=== PATIENT | male | born 1950 | race Caucasian/White ===

== ENCOUNTER → 2017-01-08 | Outpatient (CLI) | payer OTHER, MEDICARE ==
[~2017-01-08] MED LIST: ASPIRIN FOR CHI81 MG PO; ATORVASTATIN CA80 M1 PO; ISOSORBIDE DINI30 MG PO; ISOSORBIDE MONO30 MG PO; METOPROLOL TART50 M1 PO; NITROGLYCERIN0.4 MG SL; PROVENTIL0.09 MG/A1 INH; TAMSULOSIN HCL0.4 MG PO
== END | disposition home or self-care (01) ==
LOC: US 06:31
DX: Z13.6 Encounter for screening for cardiovascular disorders (principal); Z72.0 Tobacco use

== ENCOUNTER 2018-08-31 02:57 | Inpatient (IN) | payer OTHER, MEDICARE ==
[2018-08-31] VITALS (7 sets, daily range): BP systolic 109–134; BP diastolic 71–85
[~2018-08-31] VITALS: Ht 167.6 cm; Wt 74.9 kg
--- NOTE | ~2018-08-31 | EKG ---
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
--- NOTE | ~2018-08-31 | PR ---
[place], [place] PROGRESS NOTE NAME: LEILA HANDLEY UNIT #: [id number] ROOM: 505 DOCTOR: FRANDY SALGUERO MD BIRTHDATE: [birth year] DOS: 09/01/2018 SUBJECTIVE: The patient was seen in the Cardiology Department today 09/01/2018 prior to his stress test. He denies any problems overnight and has not had any further chest discomfort. Troponin levels have remained negative. PHYSICAL EXAMINATION: VITAL SIGNS: His pulse is 70 and regular, blood pressure was 122/76. He is afebrile. He weighs 74.9 kilograms with a body mass index of 26.7. NECK: Supple. CHEST: Clear to auscultation and percussion. HEART: Had a regular rhythm with an S4 gallop. ABDOMEN: Benign. EXTREMITIES: Showed no edema. IMPRESSION: 1. History of coronary artery disease, status post bypass surgery. 2. Chest pain consistent with unstable angina, but without any objective findings to suggest myocardial injury. 3. Chronic obstructive pulmonary disease. 4. History of Agent Randall exposure. 5. Hyperlipidemia. 6. Obstructive sleep apnea. PLAN: We will proceed with a pharmacologic stress test today. Further recommendations will depend upon the results of his stress test images. I thank the hospitalist physicians for asking our advice regarding his care. ADDENDUM I reviewed the nuclear images on the patient. They are normal, demonstrating normal myocardial perfusion and normal left ventricular systolic function. His risk of a myocardial event in the near future is very low and therefore ongoing medical therapy is appropriate. He may be discharged from a cardiac standpoint. He is followed by the [place] and we will remain available to see him as needed. [place], [place] PROGRESS NOTE NAME: LEILA HANDLEY UNIT #: [id number] ROOM: 505 DOCTOR: FRANDY SALGUERO MD BIRTHDATE: [birth year] FRANDY SALGUERO MD CM:PNTRANS [id number] FRANDY SALGUERO MD 09/02/182025 interface
--- NOTE | ~2018-08-31 | EKG ---
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
--- NOTE | ~2018-08-31 | EKG ---
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
[2018-08-31 03:12] LABS: BASO % 0.4 % (0.0-1.0); EOS # 0.2 10*3/uL (0.0-0.4); EOS % 4.9 % (1.0-4.0); HEMATOCRIT 40.4 % (42.0-52.0); HEMOGLOBIN 13.8 g/dl (14.0-18.0); LYMPH # 1.1 10*3/uL (1.3-4.4); LYMPH % 23.8 % (27.0-41.0); MEAN CELL VOLUME 91.6 fl (80.0-94.0); MEAN CORPUSCULAR HGB 31.3 pg (27.0-31.0); MEAN CORPUSCULAR HGB CONC 34.2 g/dl (33.0-37.0); MEAN PLATELET VOLUME 8.9 fl (9.6-12.3); MONO # 0.8 10*3/uL (0.1-1.0); MONO % 18.5 % (3.0-9.0); NEUT # 2.4 10*3/uL (2.3-7.9); NEUT % 52.4 % (47.0-73.0); PLATELET COUNT AUTOMATED 145 10*3/uL (130-400); RED BLOOD COUNT 4.41 10*6/uL (4.50-5.90); RED CELL DISTRI WIDTH 13.5 % (0-14.5); WHITE BLOOD COUNT 4.5 10*3/uL (4.8-10.8)
[2018-08-31 03:28] LABS: ALBUMIN 3.7 gm/dl (3.1-4.5); ALKALINE PHOSPHATASE 65 U/L (45-117); BUN 17 mg/dl (7-24); CHLORIDE 106 mmol/L (98-107); CREATININE 1.05 mg/dL (0.70-1.30); POTASSIUM 3.9 mmol/L (3.5-5.1); SGOT/AST 25 IU/L (3-35); SGPT/ALT 34 U/L (12-78); SODIUM 139 mmol/L (136-145); TOTAL PROTEIN 7.1 gm/dL (6.4-8.2)
[2018-08-31 03:30] LABS: ACT PARTIAL THROMBO TIME 23.5 SECONDS (20.8-31.5); TROPONIN I < 0.015 ng/ml (<0.045)
--- NOTE | 2018-08-31 04:22 | NUR ---
PROVIDED PATIENT WITH PILLOW AND BLANKETS AT THIS TIME. EXPLAINED TO PATIENT THE BED SITUATION ON THE FLOORS AT THIS TIME. PATIENT VOICED UNDERSTANDING AT THIS TIME. RESPRIATIONS EASY, NON-LABORED ON ROOM AIR. NO DISTRESS NOTED. CALL LIGHT WITHIN REACH. RN WILL CONTINUE TO MONITOR.
--- NOTE | 2018-08-31 07:55 | NUR ---
A 67, admitted to 5E, under the services of CASEY Bustamante DO with a diagnosis of CHEST PAIN. Chief complaint is CHEST PAIN. Patient arrived via ambulatory from ER. Monitor applied. Initial assessment completed. Vital signs taken and recorded. CASEY BUSTAMANTE DO notified of admission to the unit. Orders received. See assessment for past medical history, medications and allergies. Patient and/or family oriented to unit. [facility] 5TH FLOOR visitation policy reviewed. Clothing/patient valuable form completed. KAUSHIK BRIONES
--- NOTE | 2018-08-31 08:43 | NUR ---
OFFICE STAFF WAS NOTIFIED OF DR. SALGUERO CONSULT. RESPONSE OF NOTIFICATION WAS OK THANK YOU. DOROTA HENRY
[2018-08-31] MEDS ORDERED: LOPRESSOR100 M1 PO (08:48)
--- NOTE | 2018-08-31 08:56 | NUR ---
NOTIFIED THE HOSPITALIST THAT MED REC IS UP TO DATE.
--- NOTE | 2018-08-31 20:00 | NUR ---
AAOX3 SITTING UP IN BED. SKIN WARM & DRY. PULSE OX 95% ON ROOM AIR. VOICES NO C/O AT THIS TIME. CALL LIGHT WITHIN REACH.
--- NOTE | 2018-08-31 22:00 | NUR ---
INFORMED PATIENT THAT HE WOULD BE NPO AFTER MIDNIGHT FOR STRESS TEST IN A.M.
[2018-09-01] VITALS: BP 122/76
--- NOTE | 2018-09-01 04:00 | NUR ---
RESTING IN BED WITH EYES CLOSED. CALL LIGHT WITHIN REACH.
[2018-09-01 06:40] LABS: BASO % 0.2 % (0.0-1.0); EOS # 0.3 10*3/uL (0.0-0.4); EOS % 6.4 % (1.0-4.0); HEMATOCRIT 43.8 % (42.0-52.0); HEMOGLOBIN 14.4 g/dl (14.0-18.0); LYMPH # 1.3 10*3/uL (1.3-4.4); LYMPH % 26.5 % (27.0-41.0); MEAN CELL VOLUME 92.8 fl (80.0-94.0); MEAN CORPUSCULAR HGB 30.5 pg (27.0-31.0); MEAN CORPUSCULAR HGB CONC 32.9 g/dl (33.0-37.0); MEAN PLATELET VOLUME 9.5 fl (9.6-12.3); MONO # 0.6 10*3/uL (0.1-1.0); MONO % 12.7 % (3.0-9.0); NEUT # 2.6 10*3/uL (2.3-7.9); PLATELET COUNT AUTOMATED 150 10*3/uL (130-400); RED BLOOD COUNT 4.72 10*6/uL (4.50-5.90); RED CELL DISTRI WIDTH 13.5 % (0-14.5); WHITE BLOOD COUNT 4.7 10*3/uL (4.8-10.8)
[2018-09-01 06:50] LABS: INTERNATIONAL NORM RATIO 0.9 (2.0-3.5)
[2018-09-01 07:12] LABS: ALBUMIN 3.5 gm/dl (3.1-4.5); ALKALINE PHOSPHATASE 71 U/L (45-117); BUN 18 mg/dl (7-24); CHLORIDE 105 mmol/L (98-107); CHOLESTEROL 135 mg/dL (<200); CREATININE 1.03 mg/dL (0.70-1.30); FREE T4 1.11 ng/dl (0.76-1.46); HDL CHOLESTEROL 34 mg/dl (40-60); PHOSPHOROUS 3.7 mg/dL (2.5-4.9); POTASSIUM 4.2 mmol/L (3.5-5.1); SGPT/ALT 35 U/L (12-78); SODIUM 138 mmol/L (136-145)
[2018-09-01 07:17] LABS: LDL CHOLESTEROL 86 mg/dL (9-159); SGOT/AST 29 IU/L (3-35); TOTAL PROTEIN 7.6 gm/dL (6.4-8.2); TRIGLYCERIDES 73 mg/dl (<150); VLDL CHOLESTEROL 15 mg/dL (6-40)
--- NOTE | 2018-09-01 09:44 | NUR ---
PT RETURNED TO FLOOR FROM OR. PT STABLE AT THIS TIME.
--- NOTE | 2018-09-01 10:15 | NUR ---
INFORMED CONSENT OBTAINED FOR LEXISCAN NUCLEAR STRESS TEST WITH DR. SALGUERO. RESTING EKG NSR WITH RARE PVC. RESTING HR OF 87 WITH BP OF 104/80. LUNGS CLEAR WITH SPO2 OF 94% ON ROOM AIR. PT COMPLETED A 1:00 LEXISCAN PROTOCOL RECEIVING LEXISCAN 0.4 MG IV OVER 10 SECONDS. HAD NO CHEST PAIN OR ANY EKG CHANGES. HAD C/O OF FEELING "BREATHLESS" THAT WAS RELIEVED IN RECOVERY. HAD A PEAK BP OF 109 WITH BP OF 112/68. LAST RECOVERY HR OF 103 WITH BP OF 108/72. AWAITING SCANNING IN STABLE CONDITION.
--- NOTE | 2018-09-01 11:50 | NUR ---
Front End Technician in to talk to patient. Patient states lives at HOME with . There are BASEMENT steps in the home. Physician: SYLVIE WALLACE [place]: [place] Home health services: NONE Patient's level of ADLs: INDEPENDENT Patient has working utilities: YES DME: CPAP Follow-up physician's appointment after d/c: WILL BE MADE BY HOSPITALIST NURSE DIRECTOR ON DISCHARGE Does patient want to access PORTAL?: NO Discharge plan PT LIVES AT HOME WITH HIS AND IS INDEPENDENT IN CARE. STATES HE HAS NO NEEDS AT HOME ON DISCHARGE. CAN DISCHARGED TO HOME WHEN MEDICALLY STABLE.. FELICE CROOKS
[2018-09-01 12:00] VITALS: BP 103/84
[2018-09-01 16:00] VITALS: BP 106/77
--- NOTE | 2018-09-01 17:41 | NUR ---
Discharge instructions reviewed with patient/family. Patient receptive and verbalizes understanding. Follow-up care arranged. Written instructions given to patient/family.TELEMETRY ACCOUNTED FOR AND HEPLOCK REMOVED. EDUCATION PROVIDED FOR F/U. TEZ LOPEZ
== END 2018-09-01 17:41 | disposition home or self-care (01) | DRG 392 ==
LOC: ED 02:57 → 5E 04:02 → EDHOLD 04:02 → 5E 04:02
PROVIDERS: Family Medicine; ADMIT Internal Medicine
PROC: 3E073KZ Introduction of Other Diagnostic Substance into Coronary Artery, Percutaneous Approach (ICD-10-PCS; principal; 2018-09-01)
PROC: 4A02XM4 Measurement of Cardiac Total Activity, External Approach (ICD-10-PCS; principal; 2018-09-01)
DX: K21.9 Gastro-esophageal reflux disease without esophagitis (principal); I25.110 Atherosclerotic heart disease of native coronary artery with unstable angina pectoris; F41.9 Anxiety disorder, unspecified; J44.9 Chronic obstructive pulmonary disease, unspecified; G47.33 Obstructive sleep apnea (adult) (pediatric); D64.9 Anemia, unspecified; E78.5 Hyperlipidemia, unspecified; N40.0 Benign prostatic hyperplasia without lower urinary tract symptoms; G47.30 Sleep apnea, unspecified; D72.819 Decreased white blood cell count, unspecified; Z95.1 Presence of aortocoronary bypass graft; Z87.891 Personal history of nicotine dependence; Z79.51 Long term (current) use of inhaled steroids; Z79.82 Long term (current) use of aspirin; Z79.899 Other long term (current) drug therapy

== ENCOUNTER → 2020-07-31 | Outpatient (CLI) | payer OTHER ==
[~2020-07-31] MED LIST changes: +LOPRESSOR100 M1 PO
== END | disposition home or self-care (01) ==
LOC: CARD 08:09
PROVIDERS: ATTEND Nurse Practitioner
DX: I35.8 Other nonrheumatic aortic valve disorders (principal)